=== PATIENT | male | born 1975 | race Two or more races ===

== ENCOUNTER 2024-03-10 12:59 | Inpatient (IN) | payer OTHER ==
[~2024-03-10] VITALS: Ht 177.8 cm; Wt 88.5 kg
[2024-03-10 14:26] LABS: BASOPHILS % (AUTO) 0.5 % (0.0-2.0); EOSINOPHILS # (AUTO) 0.1 K/uL (0.0-0.7); EOSINOPHILS % (AUTO) 1.4 % (0.0-6.0); HEMATOCRIT 39 % (39-51); HEMOGLOBIN 13.1 g/dL (13.5-17.5); LYMPHOCYTES # (AUTO) 2.2 K/uL (0.8-4.8); LYMPHOCYTES % (AUTO) 25.5 % (20.0-44.0); MEAN CORPUSCULAR HEMOGLOBIN 29 PG (26.0-33.0); MEAN CORPUSCULAR HGB CONC 34 g/dl (31.0-36.0); MEAN CORPUSCULAR VOLUME 85 fL (80-96); MONOCYTES # (AUTO) 0.7 K/uL (0.1-1.30); MONOCYTES % (AUTO) 7.9 % (2.0-12.0); NEUTROPHILS # (AUTO) 5.5 K/uL (1.8-8.9); NEUTROPHILS % (AUTO) 64.7 % (43.0-81.0); PLATELET COUNT (AUTO) 263 K/uL (150-450); RED BLOOD CELL COUNT(AUTO) 4.59 MIL/uL (4.5-6.0); RED CELL DISTRIBUTION WIDTH 14.5 % (11.5-15.0); WHITE BLOOD COUNT (AUTO) 8.5 K/uL (4.3-11.0)
[2024-03-10] MEDS ORDERED: FUROSEMIDE 40 MG/4 ML VIAL ONE (14:49)
[2024-03-10] MEDS ORDERED: methylPREDNISolone SOD SUCC 125 MG/2ML VIAL ONE (14:50)
[2024-03-10] MEDS ORDERED: ASPI-1169 PO (14:56)
[2024-03-10] MEDS ORDERED: METF-442 PO (14:56)
[2024-03-10] MEDS ORDERED: AMLO10TA4 PO (14:56)
[2024-03-10 14:58] VITALS: O2SAT 96
[2024-03-10 14:58] LABS: CALCIUM, SERUM 8.9 mg/dL (8.5-10.1); CHLORIDE 103 mmol/L (98-107); GLUCOSE 162 mg/dL (74-106); NT-PRO BNP 2668 pg/mL (0-125); POTASSIUM 3.9 mmol/L (3.5-5.1); SODIUM SERUM 138 mmol/L (136-145); UREA NITROGEN, BLOOD 9 mg/dL (7-18)
[2024-03-10] MEDS: ALBUTEROL FS 2.5 MG/3 ML VIAL.NEB CONTNEB ONE (14:58)
[2024-03-10] MEDS: IPRATROPIUM NEB FS 0.5 MG/2.5 ML AMPUL.NEB NEB ONE (14:58)
[2024-03-10] MEDS: FUROSEMIDE 40 MG/4 ML VIAL IV ONE (14:59)
[2024-03-10] MEDS ORDERED: IPRATROPIUM NEB FS 0.5 MG/2.5 ML AMPUL.NEB ONE (14:59)
[2024-03-10] MEDS ORDERED: ALBUTEROL FS 2.5 MG/3 ML VIAL.NEB ONE (14:59)
[2024-03-10] MEDS: methylPREDNISolone SOD SUCC 125 MG/2ML VIAL IV ONE (15:00)
[2024-03-10 15:02] LABS: CARBON DIOXIDE 25 mmol/L (21-32)
[2024-03-10 15:22] VITALS: O2SAT 98
[2024-03-10] MEDS ORDERED: Z GUARD REMEDY 4 OZ OINT TP PRN (16:30)
[2024-03-10] MEDS ORDERED: MAGNESIUM HYDROXIDE 30 ML UDC PO PRN (16:30)
[2024-03-10] MEDS ORDERED: DEXTROSE 50%-WATER 50 ML DISP.SYRIN IV PRN (16:30)
[2024-03-10] MEDS ORDERED: ONDANSETRON HCL/PF 4 MG/2 ML VIAL IVP PRN (16:30)
[2024-03-10] MEDS ORDERED: ACETAMINOPHEN 325 MG TABLET PO PRN (16:30)
[2024-03-10] MEDS ORDERED: MAG HYDROX/AL HYDROX/SIMETH 30 ML UDC PO PRN (16:30)
[2024-03-10] MEDS: BLOOD SUGAR DIAGNOSTIC 1 EACH STRIP VI SCH (17:40)
[2024-03-10] MEDS: FUROSEMIDE 40 MG/4 ML VIAL IV SCH (17:40)
[2024-03-10] MEDS: ENOXAPARIN SODIUM 40 MG/0.4 ML DISP.SYRIN SQ SCH (17:41)
[2024-03-10] MEDS: INSULIN REGULAR, HUMAN 100 UNIT/ML 3 ML VIAL SQ PRN (17:42)
[2024-03-10 20:00] VITALS: BP 115/89; TEMP 98.1; O2SAT 92
[2024-03-10] MEDS: *INSULIN REGULAR(HUMULIN R)HUM 100 UNIT/ML VIAL SQ PRN (21:46)
[2024-03-11] VITALS: BP 115/89; TEMP 98.1; O2SAT 92
[2024-03-11 04:00] VITALS: BP 114/85; TEMP 98.2; O2SAT 95
[2024-03-11 06:35] LABS: BASOPHILS % (AUTO) 0.1 % (0.0-2.0); HEMATOCRIT 40 % (39-51); HEMOGLOBIN 13.7 g/dL (13.5-17.5); LYMPHOCYTES % (AUTO) 10.7 % (20.0-44.0); MEAN CORPUSCULAR HEMOGLOBIN 28 PG (26.0-33.0); MEAN CORPUSCULAR HGB CONC 34 g/dl (31.0-36.0); MEAN CORPUSCULAR VOLUME 84 fL (80-96); MONOCYTES # (AUTO) 0.4 K/uL (0.1-1.30); MONOCYTES % (AUTO) 3.9 % (2.0-12.0); NEUTROPHILS # (AUTO) 8.3 K/uL (1.8-8.9); NEUTROPHILS % (AUTO) 85.3 % (43.0-81.0); PLATELET COUNT (AUTO) 298 K/uL (150-450); RED BLOOD CELL COUNT(AUTO) 4.82 MIL/uL (4.5-6.0); RED CELL DISTRIBUTION WIDTH 14.7 % (11.5-15.0); WHITE BLOOD COUNT (AUTO) 9.8 K/uL (4.3-11.0)
[2024-03-11 07:14] LABS: CALCIUM, SERUM 8.6 mg/dL (8.5-10.1); MAGNESIUM 2.2 mg/dL (1.8-2.4); PHOSPHORUS 3.8 mg/dL (2.5-4.9); POTASSIUM 3.6 mmol/L (3.5-5.1)
[2024-03-11 07:30] VITALS: BP 134/90; TEMP 98.1; O2SAT 94
[2024-03-11] MEDS: ASPIRIN 81 MG TAB.CHEW PO SCH (08:41)
[2024-03-11] MEDS: METOPROLOL TARTRATE 25 MG TABLET PO SCH (15:39)
[2024-03-11 16:00] VITALS: BP 119/89; TEMP 99.1; O2SAT 93
[2024-03-11 20:00] VITALS: BP 113/89; TEMP 98.2; O2SAT 94
[2024-03-11] MEDS: ATORVASTATIN 10 MG TABLET PO SCH (21:03)
[2024-03-12] VITALS: BP 102/78; TEMP 97.9; O2SAT 94
[2024-03-12 04:00] VITALS: BP 112/89; TEMP 97.7; O2SAT 94
[2024-03-12 06:13] LABS: BASOPHILS % (AUTO) 0.5 % (0.0-2.0); EOSINOPHILS # (AUTO) 0.1 K/uL (0.0-0.7); EOSINOPHILS % (AUTO) 1.2 % (0.0-6.0); HEMATOCRIT 41 % (39-51); HEMOGLOBIN 13.8 g/dL (13.5-17.5); LYMPHOCYTES % (AUTO) 30.1 % (20.0-44.0); MEAN CORPUSCULAR HEMOGLOBIN 28 PG (26.0-33.0); MEAN CORPUSCULAR HGB CONC 33 g/dl (31.0-36.0); MEAN CORPUSCULAR VOLUME 85 fL (80-96); MONOCYTES # (AUTO) 0.6 K/uL (0.1-1.30); MONOCYTES % (AUTO) 5.8 % (2.0-12.0); NEUTROPHILS # (AUTO) 6.3 K/uL (1.8-8.9); NEUTROPHILS % (AUTO) 62.4 % (43.0-81.0); PLATELET COUNT (AUTO) 287 K/uL (150-450); RED CELL DISTRIBUTION WIDTH 14.7 % (11.5-15.0); WHITE BLOOD COUNT (AUTO) 10.1 K/uL (4.3-11.0)
[2024-03-12 06:44] LABS: CALCIUM, SERUM 9.1 mg/dL (8.5-10.1); CREATININE 0.9 mg/dL (0.6-1.3); POTASSIUM 3.8 mmol/L (3.5-5.1)
[2024-03-12 07:00] VITALS: BP 123/95; TEMP 98.1; O2SAT 97
[2024-03-12] MEDS: LOSARTAN POTASSIUM 25 MG TABLET PO SCH (08:42)
[2024-03-12 09:57] LABS: THYROID STIMULATING HORMONE 1.47 uIU/mL (0.358-3.74)
[2024-03-12 13:39] VITALS: BP 123/95; TEMP 98.1; O2SAT 97
[2024-03-12 16:00] VITALS: BP 118/85; TEMP 98.4; O2SAT 98
[2024-03-12 20:00] VITALS: BP 111/86; TEMP 98.2; O2SAT 97
[2024-03-12] MEDS: METOPROLOL TARTRATE 25 MG TABLET PO SCH (20:54)
[2024-03-12] MEDS ORDERED: SACU1TAB7 PO (21:10)
[2024-03-12] MEDS ORDERED: METO25TA20 PO (21:10)
[2024-03-12] MEDS ORDERED: LOSA25TA27 PO (21:10)
[2024-03-12] MEDS ORDERED: ATOR10TA PO (21:10)
[2024-03-12] MEDS: ZOLPIDEM TARTRATE 5 MG TABLET PO PRN (21:48)
[2024-03-13 07:00] VITALS: BP 126/86; TEMP 98.4; O2SAT 94
[2024-03-13] MEDS ORDERED: NITROGLYCERIN 0.4 MG/TAB BOTTLE ONE (12:54)
[2024-03-13] MEDS ORDERED: IOHEXOL-350 100 ML VIAL IV ONE (12:54)
[2024-03-13] MEDS ORDERED: METOPROLOL TARTRATE INJ 5 MG/5 ML AMPUL ONE ×2 (12:54→13:18)
[2024-03-13] MEDS ORDERED: IV NS 0.9% 250 ML IV ONE (12:55)
[2024-03-13] MEDS ORDERED: CT SWABBABLE VALVE TRANS SET 1 EA INFUS.SET MC ONE (12:55)
[2024-03-13] MEDS ORDERED: IV NS 0.9% 500 ML IV PRN (13:30)
[2024-03-13] MEDS ORDERED: METOPROLOL TARTRATE INJ 5 MG/5 ML AMPUL IVP PRN (13:30)
[2024-03-13] MEDS: NITROGLYCERIN 0.4 MG/TAB BOTTLE SL ONE (14:50)
[2024-03-13 16:00] VITALS: BP 118/86; TEMP 98.2; O2SAT 98
[2024-03-13 20:00] VITALS: BP 109/79; TEMP 98.4; O2SAT 97
[2024-03-13 21:21] VITALS: BP 109/79; TEMP 98.4; O2SAT 97
[2024-03-14 08:17] VITALS: BP 107/76; TEMP 97.7; O2SAT 98
[2024-03-14 16:13] VITALS: BP 96/71; TEMP 98.4; O2SAT 98
[2024-03-14 20:00] VITALS: BP 104/75; TEMP 98.2; O2SAT 100
[2024-03-15 06:43] LABS: BASOPHILS % (AUTO) 0.6 % (0.0-2.0); EOSINOPHILS # (AUTO) 0.2 K/uL (0.0-0.7); EOSINOPHILS % (AUTO) 2.4 % (0.0-6.0); HEMATOCRIT 41 % (39-51); HEMOGLOBIN 13.9 g/dL (13.5-17.5); LYMPHOCYTES # (AUTO) 2.7 K/uL (0.8-4.8); LYMPHOCYTES % (AUTO) 34.5 % (20.0-44.0); MEAN CORPUSCULAR HEMOGLOBIN 28 PG (26.0-33.0); MEAN CORPUSCULAR HGB CONC 34 g/dl (31.0-36.0); MEAN CORPUSCULAR VOLUME 84 fL (80-96); MONOCYTES # (AUTO) 0.6 K/uL (0.1-1.30); MONOCYTES % (AUTO) 7.8 % (2.0-12.0); NEUTROPHILS # (AUTO) 4.3 K/uL (1.8-8.9); NEUTROPHILS % (AUTO) 54.7 % (43.0-81.0); PLATELET COUNT (AUTO) 260 K/uL (150-450); RED BLOOD CELL COUNT(AUTO) 4.91 MIL/uL (4.5-6.0); RED CELL DISTRIBUTION WIDTH 14.3 % (11.5-15.0); WHITE BLOOD COUNT (AUTO) 7.9 K/uL (4.3-11.0)
[2024-03-15 06:53] LABS: CALCIUM, SERUM 8.9 mg/dL (8.5-10.1); CREATININE 0.9 mg/dL (0.6-1.3); MAGNESIUM 2.2 mg/dL (1.8-2.4); PHOSPHORUS 4.1 mg/dL (2.5-4.9); POTASSIUM 3.7 mmol/L (3.5-5.1)
[2024-03-15 08:00] VITALS: BP 107/76; TEMP 97.7; O2SAT 99
[2024-03-15 16:00] VITALS: BP 100/76; TEMP 98.2; O2SAT 99
[2024-03-16] MEDS ORDERED: IV SET PRIMARY PUMP SET 1 EA INFUS.SET MC ONE (06:11)
[2024-03-16] MEDS ORDERED: IV NS 0.9% 500 ML IV ONE (06:11)
[2024-03-16] MEDS ORDERED: IODIXANOL 150 ML IV ONE (06:12)
[2024-03-16] MEDS ORDERED: LIDOCAINE HCL/MPF 1% 30 ML VIAL IJ ONE (06:12)
[2024-03-16] MEDS ORDERED: NITROGLYCERIN IN 5 % DEXTROSE 250 ML IV ONE (06:12)
[2024-03-16 07:04] LABS: PROTHROMBIN TIME 10.6 SECS (9.2-11.1)
[2024-03-16 07:09] LABS: BASOPHILS % (AUTO) 0.5 % (0.0-2.0); EOSINOPHILS # (AUTO) 0.1 K/uL (0.0-0.7); EOSINOPHILS % (AUTO) 1.3 % (0.0-6.0); HEMATOCRIT 43 % (39-51); HEMOGLOBIN 14.4 g/dL (13.5-17.5); LYMPHOCYTES # (AUTO) 1.8 K/uL (0.8-4.8); MEAN CORPUSCULAR HEMOGLOBIN 28 PG (26.0-33.0); MEAN CORPUSCULAR HGB CONC 34 g/dl (31.0-36.0); MEAN CORPUSCULAR VOLUME 84 fL (80-96); MONOCYTES # (AUTO) 0.6 K/uL (0.1-1.30); MONOCYTES % (AUTO) 6.4 % (2.0-12.0); NEUTROPHILS # (AUTO) 6.6 K/uL (1.8-8.9); NEUTROPHILS % (AUTO) 71.8 % (43.0-81.0); PLATELET COUNT (AUTO) 258 K/uL (150-450); RED BLOOD CELL COUNT(AUTO) 5.12 MIL/uL (4.5-6.0); RED CELL DISTRIBUTION WIDTH 14.1 % (11.5-15.0); WHITE BLOOD COUNT (AUTO) 9.2 K/uL (4.3-11.0)
[2024-03-16 07:30] LABS: CALCIUM, SERUM 8.9 mg/dL (8.5-10.1); POTASSIUM 3.9 mmol/L (3.5-5.1)
[2024-03-16] MEDS ORDERED: FENTANYL PF 100MCG/2ML AMPUL ONE (08:05)
[2024-03-16] MEDS ORDERED: MIDAZOLAM HCL 2 MG/2ML VIAL ONE (08:05)
[2024-03-16 11:30] VITALS: BP_SYST 124; BP_SYST 126; BP_DIAS 86; BP_DIAS 91; TEMP 97.9; O2SAT 95; O2SAT 99
[2024-03-16 16:00] VITALS: BP 111/75; TEMP 98.4; O2SAT 98
[2024-03-16 20:00] VITALS: BP 110/70; TEMP 98.2; O2SAT 98
[2024-03-17] VITALS: BP 114/82; TEMP 98.2; O2SAT 96
[2024-03-17 04:00] VITALS: BP 97/69; TEMP 98.2; O2SAT 97
[2024-03-17 06:55] LABS: BASOPHILS % (AUTO) 0.3 % (0.0-2.0); EOSINOPHILS # (AUTO) 0.1 K/uL (0.0-0.7); EOSINOPHILS % (AUTO) 1.3 % (0.0-6.0); HEMATOCRIT 42 % (39-51); HEMOGLOBIN 13.9 g/dL (13.5-17.5); LYMPHOCYTES # (AUTO) 1.2 K/uL (0.8-4.8); LYMPHOCYTES % (AUTO) 14.5 % (20.0-44.0); MEAN CORPUSCULAR HEMOGLOBIN 28 PG (26.0-33.0); MEAN CORPUSCULAR HGB CONC 33 g/dl (31.0-36.0); MEAN CORPUSCULAR VOLUME 84 fL (80-96); MONOCYTES # (AUTO) 0.6 K/uL (0.1-1.30); MONOCYTES % (AUTO) 6.8 % (2.0-12.0); NEUTROPHILS # (AUTO) 6.6 K/uL (1.8-8.9); NEUTROPHILS % (AUTO) 77.1 % (43.0-81.0); PLATELET COUNT (AUTO) 210 K/uL (150-450); RED BLOOD CELL COUNT(AUTO) 4.95 MIL/uL (4.5-6.0); RED CELL DISTRIBUTION WIDTH 14.4 % (11.5-15.0); WHITE BLOOD COUNT (AUTO) 8.6 K/uL (4.3-11.0)
[2024-03-17 07:06] LABS: CALCIUM, SERUM 8.6 mg/dL (8.5-10.1); CREATININE 0.9 mg/dL (0.6-1.3); POTASSIUM 3.7 mmol/L (3.5-5.1)
[2024-03-17 07:30] VITALS: BP 108/83; TEMP 99.3; O2SAT 95
[2024-03-17 08:54] VITALS: BP 108/83
== END 2024-03-17 13:30 | disposition home or self-care (01) | DRG 192 ==
LOC: ER 13:04 → TELE 16:35 → MED 03-12 08:38 → TELE 03-16 10:04
PROVIDERS: ADMIT Internal Medicine; ATTEND Internal Medicine
PROC: 4A023N7 Measurement of Cardiac Sampling and Pressure, Left Heart, Percutaneous Approach (ICD-10-PCS; principal; 2024-03-16)
PROC: B211YZZ Fluoroscopy of Multiple Coronary Arteries using Other Contrast (ICD-10-PCS; 2024-03-16)
DX: I11.0 Hypertensive heart disease with heart failure (principal); I42.9 Cardiomyopathy, unspecified; I25.10 Atherosclerotic heart disease of native coronary artery without angina pectoris; I50.23 Acute on chronic systolic (congestive) heart failure; E11.65 Type 2 diabetes mellitus with hyperglycemia; I25.5 Ischemic cardiomyopathy; F17.210 Nicotine dependence, cigarettes, uncomplicated; Z91.199 Patient's noncompliance with other medical treatment and regimen due to unspecified reason; F14.90 Cocaine use, unspecified, uncomplicated; Z79.84 Long term (current) use of oral hypoglycemic drugs
CPT/HCPCS: 36415; 71045-TC; 75574; 80048-TC; 80061-TC; 82962-TC; 83735-TC; 83880; 84100-TC; 84439-TC; 84443-TC; 84484-TC; 85025-TC; 85610-TC; 85730-TC; 93307-TC; A4223; G0378; G0500; J1644; J1650; J1815; J1940; J2250; J2919; J3010; J3490; J7040; J7050; Q9967

== ENCOUNTER 2024-04-29 14:06 | Emergency (ER) | payer OTHER ==
[~2024-04-29] VITALS: Ht 177.8 cm; Wt 83.9 kg
[~2024-04-29 14:06] MED LIST: ASPI-1169 PO; ATOR10TA PO; LOSA25TA27 PO; METF-442 PO; METO25TA20 PO; SACU1TAB7 PO
[2024-04-29 15:02] VITALS: BP 101/75; TEMP 97.8
[2024-04-29] MEDS ORDERED: METO25TA20 PO (15:48)
[2024-04-29] MEDS ORDERED: ASPI-1169 PO (15:48)
[2024-04-29] MEDS ORDERED: ATOR10TA PO (15:48)
[2024-04-29] MEDS ORDERED: METF-442 PO (15:48)
[2024-04-29] MEDS ORDERED: LOSA25TA27 PO (15:48)
[2024-04-29 16:07] VITALS: O2SAT 99
== END 2024-04-29 16:07 | disposition home or self-care (01) ==
LOC: ER 14:30
DX: I11.0 Hypertensive heart disease with heart failure (principal); I50.9 Heart failure, unspecified; E11.9 Type 2 diabetes mellitus without complications; I42.9 Cardiomyopathy, unspecified; F17.200 Nicotine dependence, unspecified, uncomplicated; Z76.0 Encounter for issue of repeat prescription